=== PATIENT | male | born 1955 | race Caucasian/White ===

== ENCOUNTER 2017-05-13 16:06 | Emergency (ER) | payer SELFPAY ==
[~2017-05-13] VITALS: Ht 180.3 cm; Wt 96.6 kg
[2017-05-13 16:12] VITALS: BP 177/111
[2017-05-13 16:58] LABS: Basophils # (auto) 0.1 uL; Basophils % (auto) 1.1 % (0.0-2.0); Eosinophils # (auto) 0.1 uL; Eosinophils % (auto) 1.8 % (0.0-7.0); Hematocrit 46.4 % (41.0-53.0); Hemoglobin 15.7 g/dL (13.5-17.5); Lymphocytes # (auto) 1.9 uL; Lymphocytes % (auto) 31.8 % (10.0-50.0); Mean Corpuscular Hemoglobin 31.4 pg (28.0-32.0); Mean Corpuscular Hgb Conc. 33.9 g/dL (32.0-36.0); Mean Corpuscular Volume 92.5 fL (80.0-100.0); Mean Platelet Volume 7.8 fL (6.9-10.8); Monocytes # (auto) 0.5 uL; Monocytes % (auto) 8.6 % (0.0-12.0); Neutrophils # (auto) 3.3 uL; Neutrophils % (auto) 56.7 % (37.0-80.0); Nucleated Red Blood Cells % 0.3 %; Platelet Count (auto) 98 10^3/uL (140-450); Red Cell Distribution Width 14.3 % (11.8-14.3); White Blood Cell 5.8 10^3/uL (4.4-10.8)
[2017-05-13 17:17] LABS: Albumin 3.3 g/dL (3.4-5.0); Alkaline Phosphatase 91 U/L (45-117); Anion Gap 6 (5-15); Aspartate Aminotransferase 80 U/L (15-37); BUN/Creatinine Ratio 13.6; Bilirubin, Total 0.9 mg/dL (0.2-1.0); Blood Urea Nitrogen 15 mg/dL (7-18); Carbon Dioxide 30 mmol/L (21-32); Chloride 102 mmol/L (98-107); GFR African American 88 mL/min; GFR Non-African American 73 mL/min; Glucose 228 mg/dL (74-106); Potassium 4.4 mmol/L (3.5-5.1); Sodium 138 mmol/L (136-145); Total Protein 7.8 g/dL (6.4-8.2)
== END 2017-05-13 21:27 | disposition left against medical advice (07) ==
LOC: ER 16:12
DX: I10 Essential (primary) hypertension (principal); Z53.21 Procedure and treatment not carried out due to patient leaving prior to being seen by health care provider
CPT/HCPCS: 36415; 80053; 84484; 85025; 93005

== ENCOUNTER 2020-09-12 17:19 | Inpatient (IN) | payer MEDICAID, OTHER ==
[~2020-09-12] VITALS: Ht 180.3 cm; Wt 95.9 kg
[2020-09-12] MEDS ORDERED: dilTIAZem 25 MG/5 ML VIAL IV ONE (18:00)
[2020-09-12 18:54] LABS: Eosinophils # (auto) 0.1 10 ^3/uL (0-0.8); Lymphocytes # (auto) 2.2 10 ^3/uL (0.4-5.4); Lymphocytes % (auto) 33.6 % (10.0-50.0)
[2020-09-12 18:56] LABS: Basophils # (auto) 0 10 ^3/uL (0-0.2); Basophils % (auto) 0.3 % (0.0-2.0); Eosinophils % (auto) 1.6 % (0.0-7.0); Hematocrit 35.5 % (41.0-53.0); Hemoglobin 11.4 g/dL (13.5-17.5); Mean Corpuscular Hgb Conc. 32.2 g/dL (32.0-36.0); Mean Corpuscular Volume 80.8 fL (80.0-100.0); Monocytes # (auto) 0.5 10 ^3/uL (0-1.3); Monocytes % (auto) 7.9 % (0.0-12.0); Neutrophils # (auto) 3.7 10 ^3/uL (1.6-8.6); Neutrophils % (auto) 56.6 % (37.0-80.0); Nucleated Red Blood Cells % 0.2 %; Platelet Count (auto) 122 10^3/uL (140-450); Red Blood Cells 4.39 10^6/uL (4.5-5.90); Red Cell Distribution Width 17.4 % (11.8-14.3); White Blood Cell 6.5 10^3/uL (4.4-10.8)
[2020-09-12 19:06] LABS: Calcium 8.2 mg/dL (8.5-10.1); Potassium 3.5 mmol/L (3.5-5.1)
[2020-09-12 19:17] LABS: Albumin 2.8 g/dL (3.4-5.0); BUN/Creatinine Ratio 19.6; Bilirubin, Total 1.5 mg/dL (0.2-1.0); Total Protein 7.3 g/dL (6.4-8.2)
[2020-09-12] MEDS ORDERED: NITROGLYCERIN 0.4 MG SL TAB SL PRN (21:15)
[2020-09-12] MEDS ORDERED: MORPHINE SULF INJ 2 MG/ML SYRINGE 1ML IV PRN (21:15)
[2020-09-12] MEDS ORDERED: ONDANSETRON HCL 4 MG/2 ML VIAL IV PRN (21:15)
[2020-09-12] MEDS ORDERED: DIGOXIN (250MCG/ML) 2 ML AMPULE IV ONE ×2 (22:15→23:00)
[2020-09-12] MEDS: CARVEDILOL 12.5 MG TAB PO SCH (22:26)
[2020-09-13] MEDS ORDERED: METOPROLOL TARTRATE 25 MG TAB PO ONE (00:45)
[2020-09-13] MEDS ORDERED: LACTULOSE 20Gm/30ML SOLN PO ONE (00:45)
[2020-09-13] MEDS ORDERED: AMIODARONE HCL 150 MG in D5W 5% 100 ML IV ONE (02:00)
[2020-09-13] MEDS ORDERED: AMIODARONE 450mg/250ml AE 250 ML IV SCH ×2 (02:15→08:15)
[2020-09-13 02:57] LABS: Albumin 2.7 g/dL (3.4-5.0)
[2020-09-13 02:59] LABS: BUN/Creatinine Ratio 19.8
[2020-09-13 03:04] LABS: Bilirubin, Total 1.9 mg/dL (0.2-1.0)
[2020-09-13] MEDS: MORPHINE SULF INJ 2 MG/ML SYRINGE 1ML IV PRN ×3 (04:41→16:25)
[2020-09-13 05:00] VITALS: BP 150/96
[2020-09-13 05:34] VITALS: BP 150/96
[2020-09-13 08:03] LABS: Basophils # (auto) 0.1 10 ^3/uL (0-0.2); Eosinophils # (auto) 0.1 10 ^3/uL (0-0.8); Mean Corpuscular Hgb Conc. 32.6 g/dL (32.0-36.0)
[2020-09-13 08:04] LABS: Basophils % (auto) 1.4 % (0.0-2.0); Eosinophils % (auto) 2.2 % (0.0-7.0); Hematocrit 35.7 % (41.0-53.0); Hemoglobin 11.6 g/dL (13.5-17.5); Lymphocytes # (auto) 1.4 10 ^3/uL (0.4-5.4); Lymphocytes % (auto) 27.1 % (10.0-50.0); Mean Corpuscular Hemoglobin 26.7 pg (28.0-32.0); Mean Corpuscular Volume 81.9 fL (80.0-100.0); Monocytes # (auto) 0.4 10 ^3/uL (0-1.3); Monocytes % (auto) 8.7 % (0.0-12.0); Neutrophils # (auto) 3.1 10 ^3/uL (1.6-8.6); Neutrophils % (auto) 60.6 % (37.0-80.0); Nucleated Red Blood Cells % 0.1 %; Platelet Count (auto) 115 10^3/uL (140-450); Red Blood Cells 4.35 10^6/uL (4.5-5.90); Red Cell Distribution Width 17.7 % (11.8-14.3); White Blood Cell 5.1 10^3/uL (4.4-10.8)
[2020-09-13 08:30] VITALS: BP 135/73
[2020-09-13 10:08] LABS: Albumin 2.8 g/dL (3.4-5.0); Potassium 4.4 mmol/L (3.5-5.1)
[2020-09-13 10:13] LABS: Bilirubin, Total 2.9 mg/dL (0.2-1.0); Total Protein 7.4 g/dL (6.4-8.2)
[2020-09-13] MEDS: AZITHROMYCIN 500MG/ 250ML 250 ML IV SCH (10:37)
[2020-09-13] MEDS: LACTULOSE 20Gm/30ML SOLN PO SCH (10:37)
[2020-09-13] MEDS: ASPirin 81 mg TAB PO SCH (10:37)
[2020-09-13] MEDS: PANTOPRAZOLE 40 MG TAB PO SCH (10:38)
[2020-09-13] MEDS: ZINC SULFATE 220mg CAP or TAB PO SCH (10:38)
[2020-09-13] MEDS: CLOPIDOGREL BISULFATE 75 MG TAB PO SCH (10:38)
[2020-09-13] MEDS: ASCORBIC ACID 500 MG TAB PO SCH ×2 (10:38→22:08)
[2020-09-13] MEDS: ENOXAPARIN SOD 40 MG/0.4 ML SYRINGE SC SCH (10:38)
[2020-09-13] MEDS: CARVEDILOL 12.5 MG TAB PO SCH ×2 (10:39→22:08)
[2020-09-13 12:30] VITALS: BP 138/81
[2020-09-13] MEDS ORDERED: FUROSEMIDE 20 MG/2 ML VIAL IV ONE (14:45)
[2020-09-13] MEDS ORDERED: SPIRONOLACTONE 25 MG TAB PO ONE (14:45)
[2020-09-13 16:30] VITALS: BP 168/90
[2020-09-13] MEDS ORDERED: IOHEXOL 350 MG/ML 100ML IJ ONE (16:36)
[2020-09-13 22:00] VITALS: BP 149/92
[2020-09-13] MEDS ORDERED: ATORVASTATIN 20 MG TAB PO SCH (22:00)
[2020-09-13] MEDS: rifAXIMin 550 MG TAB PO SCH (22:08)
[2020-09-13 22:57] LABS: Amphetamine Screen, Urine POSITIVE (NEGATIVE); Barbiturate Scree,Urine NEGATIVE (NEGATIVE); Benzodiazephine Screen, Urine NEGATIVE (NEGATIVE); Cannabinoid Screen, Urine POSITIVE (NEGATIVE); Cocaine Screen, Urine NEGATIVE (NEGATIVE); Opiate Scree,Urine NEGATIVE (NEGATIVE); Phencyclidine Screen, Urine NEGATIVE (NEGATIVE)
[2020-09-13 23:22] LABS: Urine Bacteria FEW /hpf (None Seen); Urine Blood Negative /uL (Negative); Urine Specific Gravity 1.046 (1.001-1.035); Urine WBC 1 /hpf (0 - 3)
[2020-09-14 05:00] VITALS: BP 137/78
[2020-09-14 06:36] LABS: Basophils # (auto) 0.1 10 ^3/uL (0-0.2); Eosinophils # (auto) 0.1 10 ^3/uL (0-0.8); Hemoglobin 11.2 g/dL (13.5-17.5); Lymphocytes # (auto) 1.2 10 ^3/uL (0.4-5.4); Monocytes # (auto) 0.4 10 ^3/uL (0-1.3); Nucleated Red Blood Cells % 0.2 %
[2020-09-14 06:40] LABS: Basophils % (auto) 2.6 % (0.0-2.0); Eosinophils % (auto) 2.4 % (0.0-7.0); Hematocrit 34.1 % (41.0-53.0); Lymphocytes % (auto) 25.1 % (10.0-50.0); Mean Corpuscular Hemoglobin 26.7 pg (28.0-32.0); Mean Corpuscular Hgb Conc. 32.8 g/dL (32.0-36.0); Mean Corpuscular Volume 81.7 fL (80.0-100.0); Monocytes % (auto) 8.3 % (0.0-12.0); Neutrophils % (auto) 61.6 % (37.0-80.0); Platelet Count (auto) 104 10^3/uL (140-450); Red Blood Cells 4.18 10^6/uL (4.5-5.90); Red Cell Distribution Width 17.7 % (11.8-14.3); White Blood Cell 4.9 10^3/uL (4.4-10.8)
[2020-09-14 06:57] LABS: Albumin 2.5 g/dL (3.4-5.0); Calcium 7.8 mg/dL (8.5-10.1); Potassium 3.9 mmol/L (3.5-5.1)
[2020-09-14 07:03] LABS: Bilirubin, Total 1.5 mg/dL (0.2-1.0); Total Protein 6.5 g/dL (6.4-8.2)
[2020-09-14 09:00] VITALS: BP 146/73
[2020-09-14] MEDS: ZINC SULFATE 220mg CAP or TAB PO SCH (09:09)
[2020-09-14] MEDS: ASPirin 81 mg TAB PO SCH (09:09)
[2020-09-14] MEDS: AZITHROMYCIN 500MG/ 250ML 250 ML IV SCH (09:09)
[2020-09-14] MEDS: LACTULOSE 20Gm/30ML SOLN PO SCH (09:09)
[2020-09-14] MEDS: CLOPIDOGREL BISULFATE 75 MG TAB PO SCH (09:10)
[2020-09-14] MEDS: CARVEDILOL 12.5 MG TAB PO SCH (09:10)
[2020-09-14] MEDS: PANTOPRAZOLE 40 MG TAB PO SCH (09:10)
[2020-09-14 09:11] LABS: Hepatitis B Surface Antibody Negative
[2020-09-14] MEDS: ENOXAPARIN SOD 40 MG/0.4 ML SYRINGE SC SCH (09:11)
[2020-09-14] MEDS: ASCORBIC ACID 500 MG TAB PO SCH (09:11)
[2020-09-14] MEDS: rifAXIMin 550 MG TAB PO SCH (09:13)
[2020-09-14 09:47] LABS: Hepatitis A Total Antibody Positive
[2020-09-14] MEDS ORDERED: SPIRONOLACTONE 25 MG TAB PO SCH (10:00)
[2020-09-14] MEDS ORDERED: FUROSEMIDE 20 MG/2 ML VIAL IV SCH (10:00)
[2020-09-14 11:00] LABS: Hepatitis B Surface Antigen Negative (Negative)
[2020-09-14 11:04] LABS: Hepatitis B Core Total AB Positive
[2020-09-14 11:05] LABS: Hepatitis C Antibody Positive (Negative)
[2020-09-14 11:06] LABS: Hepatitis A Ab IgM Negative; Hepatitis B Core IgM Negative; Hepatitis B Surface Antigen Negative (Negative)
[2020-09-14 11:07] LABS: Hepatitis C Antibody Positive (Negative)
[2020-09-14] MEDS ORDERED: ASCO500T11 PO (11:15)
[2020-09-14] MEDS ORDERED: CHOL1CAP47 PO (11:15)
[2020-09-14 11:58] VITALS: BP 146/73
[2020-09-14] MEDS ORDERED: SPIR25TA8 PO (12:49)
[2020-09-14] MEDS ORDERED: FURO1TAB33 PO (12:49)
[2020-09-14 13:00] VITALS: BP 150/71
[2020-09-14] MEDS ORDERED: CARV12.544 PO (13:02)
[2020-09-14] MEDS ORDERED: ATOR-47 PO (13:02)
[2020-09-14] MEDS ORDERED: HYDR50TA15 PO (13:02)
[2020-09-14] MEDS ORDERED: ASPI-543 PO (13:02)
[2020-09-14] MEDS ORDERED: LOSA-69 PO (13:02)
[2020-09-14] MEDS ORDERED: ISO60SRT PO (13:02)
== END 2020-09-14 13:45 | disposition home or self-care (01) | DRG 137 ==
LOC: ER 17:19 → TELE 17:20 → TELE-WESTW 09-13 04:09
PROVIDERS: ADMIT Nurse Practitioner; ATTEND Internal Medicine Pulmonary Disease
DX: U07.1 COVID-19 (principal); E43 Unspecified severe protein-calorie malnutrition; J12.82 Pneumonia due to coronavirus disease 2019; K76.6 Portal hypertension; N40.0 Benign prostatic hyperplasia without lower urinary tract symptoms; K74.60 Unspecified cirrhosis of liver; I48.91 Unspecified atrial fibrillation; B19.20 Unspecified viral hepatitis C without hepatic coma; D68.69 Other thrombophilia; K80.10 Calculus of gallbladder with chronic cholecystitis without obstruction; Z68.29 Body mass index [BMI] 29.0-29.9, adult; I50.22 Chronic systolic (congestive) heart failure; D64.9 Anemia, unspecified; D69.6 Thrombocytopenia, unspecified; E78.5 Hyperlipidemia, unspecified; F12.90 Cannabis use, unspecified, uncomplicated; F15.90 Other stimulant use, unspecified, uncomplicated; R16.1 Splenomegaly, not elsewhere classified; K92.2 Gastrointestinal hemorrhage, unspecified; Z77.22 Contact with and (suspected) exposure to environmental tobacco smoke (acute) (chronic); I11.0 Hypertensive heart disease with heart failure; I25.10 Atherosclerotic heart disease of native coronary artery without angina pectoris; I25.2 Old myocardial infarction; Z88.0 Allergy status to penicillin; J90 Pleural effusion, not elsewhere classified; F10.20 Alcohol dependence, uncomplicated
CPT/HCPCS: 36415; 71045; 71275; 74176; 80053; 80074; 80307; 81001; 82140; 82150; 82378; 82728; 83605; 83690; 84154; 84484; 85025; 85048; 85379; 86704; 86706; 86708; 86803; 87045; 87340; 87426; 87427; 93005; 93306; 96365; 96367; 96375; 96376; G0378; J7060